=== PATIENT | male | born 1960 | race Caucasian/White ===

== ENCOUNTER → 2019-02-11 | Outpatient (CLI) | payer OTHER | END | disposition home or self-care (01) | LOC: LABWHC1 10:44 | PROVIDERS: ATTEND Physician Assistant | DX: Z08 Encounter for follow-up examination after completed treatment for malignant neoplasm (principal); Z85.46 Personal history of malignant neoplasm of prostate | CPT/HCPCS: 36415; 84153 ==

== ENCOUNTER → 2023-06-18 | Outpatient (CLI) | payer OTHER ==
--- NOTE | 2023-06-19 17:26 | CA ---
Transthoracic Echo Report Name: Dash Shahid Age: 62 Gender: M : 1960 Exam Date: 06/18/2023 13:31 Exam Location: [place] [facility] Ht (in): 74 Wt (lb): 195 Ordering Physician: David Nicole DO Attending/Referring Phys: David Nicole DO [employer] Beatris Cabezas RDCS Procedure CPT: Indications: R01.1 Murmur Cardiac Hx: MV repair 18 y/a Technical Quality: Good Contrast 1: Total Dose (mL): Contrast 2: Total Dose (mL): MEASUREMENTS (Male / Female) Normal Values 2D ECHO LV Diastolic Diameter PLAX 6.1 cm 4.2 - 5.9 / 3.9 - 5.3 cm LV Systolic Diameter PLAX 4.4 cm IVS Diastolic Thickness 1.1 cm 0.6 - 1.0 / 0.6 - 0.9 cm LVPW Diastolic Thickness 0.9 cm 0.6 - 1.0 / 0.6 - 0.9 cm LV Relative Wall Thickness 0.3 RV Internal Dim ED PLAX 3.8 cm LA Systolic Diameter LX 4.0 cm 3.0 - 4.0 / 2.7 - 3.8 cm LV Diastolic Volume MOD BP 123.1 cm??? 67 - 155 / 56 - 104 cm??? LV Systolic Volume MOD BP 49.8 cm??? - 58 / 19 - 49 cm??? LV Ejection Fraction MOD BP 59.5 % >= 55 % LV Cardiac Index MOD BP 1973.1 cm???/min???m??? LV Diastolic Volume MOD 4C 104.7 cm??? LV Systolic Volume MOD 4C 52.2 cm??? LV Ejection Fraction MOD 4C 50.2 % LV Cardiac Index MOD 4C 1413.6 cm???/min???m??? LV Diastolic Length 4C 7.9 cm LV Systolic Length 4C 7.0 cm LV Diastolic Volume MOD 2C 127.9 cm??? LV Systolic Volume MOD 2C 47.4 cm??? LV Ejection Fraction MOD 2C 63.0 % LV Cardiac Index MOD 2C 2168.4 cm???/min???m??? LV Diastolic Length 2C 9.0 cm LV Systolic Length 2C 7.1 cm LA Volume 62.3 cm??? 18 - 58 / 22 - 52 cm??? LA Volume Index 28.9 cm???/m??? 16 - 28 cm???/m??? M-MODE Aortic Root Diameter MM 3.2 cm MV E Point Septal Separation 1.1 cm AV Cusp Separation MM 2.3 cm DOPPLER AV Peak Velocity 126.4 cm/s AV Peak Gradient 6.4 mmHg MV Area PHT 2.2 cm??? Mitral E Point Velocity 95.3 cm/s Mitral A Point Velocity 131.3 cm/s Mitral E to A Ratio 0.7 MV Deceleration Time 343.0 ms MV E' Velocity 5.3 cm/s Mitral E to MV E' Ratio 17.9 TR Peak Velocity 206.3 cm/s TR Peak Gradient 17.0 mmHg Right Ventricular Systolic Press 22.0 mmHg FINDINGS Left Ventricle Left ventricular ejection fraction is estimated at 50-55 %. Normal LV size, wall thickness and systolic function. No significant regional wall motion abnormality Right Ventricle Mild right ventricular dilatation. Right Atrium Mild RA dilatation Left Atrium Mildly increased left atrial volume. Mitral Valve Mitral valve thickened. No mitral stenosis, regurgitation or prolapse. Aortic Valve Trileaflet aortic valve. No aortic valve stenosis or regurgitation. Tricuspid Valve Structurally normal tricuspid valve. Mild tricuspid regurgitation. Pulmonic Valve Structurally normal pulmonic valve. Trace pulmonic regurgitation. Pericardium No pericardial effusion. Aorta Normal size aortic root and proximal ascending aorta. CONCLUSIONS LVEF estimated at 55% No significant regional wall motion abnormality. Mild biatrial dilatation Status post mitral valve repair at age 18. No significant regurgitant stenosis No other significant valvular dysfunction No pericardial effusion Previewed by: Dr Shahram Wade (Electronically Signed) Final Date: 19 June 2023 17:25
== END | disposition home or self-care (01) ==
LOC: RADECHMAIN 12:58
PROVIDERS: ATTEND Family Medicine
DX: I51.7 Cardiomegaly (principal); R01.1 Cardiac murmur, unspecified; Z98.890 Other specified postprocedural states
CPT/HCPCS: 93306